=== PATIENT | female | born 1970 | race Caucasian/White ===

== ENCOUNTER 2021-07-22 22:45 | Emergency (ER) | payer BC ==
[2021-07-22 23:35] VITALS: BMI 31.9
[2021-07-23] MEDS ORDERED: SODIUM CHLORIDE 1,000 ML IV STA (00:57)
[2021-07-23] MEDS ORDERED: METOCLOPRAMIDE HCL INJECTION 10 MG/2 ML VIAL IVPB ONE (00:57)
[2021-07-23] MEDS ORDERED: ACETAMINOPHEN 1000 MG/100 ML VIAL (NON FORMULARY) IVPB ONE (00:57)
[2021-07-23 02:16] VITALS: BP 132/76; PULSE 78; TEMP 98.1
== END 2021-07-23 02:24 | disposition home or self-care (01) ==
LOC: JER 22:45
PROC: 3E033GC Introduction of Other Therapeutic Substance into Peripheral Vein, Percutaneous Approach (ICD-10-PCS; principal; 2021-07-22)
DX: J01.10 Acute frontal sinusitis, unspecified (principal); G44.209 Tension-type headache, unspecified, not intractable
CPT/HCPCS: 99284-25; C9803; J0131; U0003; U0005